=== PATIENT | male | born 1995 | race Caucasian/White ===

== ENCOUNTER 2018-02-06 20:22 | Emergency (ER) | payer SELFPAY ==
[2018-02-06 20:35] VITALS: BP 118/69; PULSE 84; RESP 16; TEMP 99.9; O2SAT 98
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
[2018-02-06 21:12] LABS: URINE BILIRUBIN NEGATIVE (NEGATIVE); URINE BLOOD NEGATIVE (NEGATIVE); URINE CLARITY Clear (Clear); URINE COLOR Yellow (YELLOW); URINE GLUCOSE (UA) NORMAL (Normal); URINE LEUKOCYTE ESTERASE NEG Leu/uL (Negative); URINE PROTEIN NEGATIVE (NEGATIVE); URINE UROBILINOGEN NORMAL mg/dL (0.2-1.0)
== END 2018-02-06 21:49 | disposition home or self-care (01) ==
LOC: C.ER 20:22
DX: J06.9 Acute upper respiratory infection, unspecified (principal)